=== PATIENT | female | born 1970 | race Caucasian/White ===

== ENCOUNTER 2020-04-13 04:52 | Emergency (ER) | payer OTHER ==
[~2020-04-13] VITALS: Ht 162.6 cm; Wt 86.2 kg
[2020-04-13] MEDS ORDERED: MORPHINE SULFATE 2 MG/ML SYR 1ML IV STA (05:09)
[2020-04-13] MEDS ORDERED: PANTOPRAZOLE 40 MG 10ML VIAL IV STA (05:09)
[2020-04-13] MEDS ORDERED: ONDANSETRON HCL INJ 2MG/ML 2ML 2 MG/ML VIAL IV STA (05:09)
[2020-04-13] MEDS ORDERED: SODIUM CHLORIDE 0.9% 1000ML 1,000 ML IV ONE (05:15)
[2020-04-13] MEDS ORDERED: DICYCLOMINE HCL 20 MG/2 ML VIAL IM ONE (05:15)
--- NOTE | 2020-04-13 05:16 | Emergency Department Note ---
History of Present Illnes History of Present Illness Chief Complaint: Abdominal Complaints History of Present Illness This is a 50 year old female with history of gastric sleeve presents with right upper quadrant pain since 9 PM last night after eating carditis. Patient describes pain as in her upper right abdomen radiating to her back. She reports nausea. . Historian: Patient Arrival Mode: Car Onset (how long ago): hour(s) (8) Location: ruq Quality: pain Radiation: Reports back Severity: moderate Onset quality: sudden Duration (how long): hour(s) (8) Timing of current episode: constant Progression: worsening Chronicity: new Context: Denies recent illness, Denies recent surgery Relieving factors: none Exacerbating factors: none Associated symptoms: Reports denies other symptoms (NATHAN SWEET MD) Past Medical/Family History Physician Review I have reviewed the patient's past medical and family history. Any updates have been documented here. (NATHAN SWEET MD) Past Medical History Recent Fever: No Clinical Suspicion of Infectio: No New/Unexplained Change in Ment: No Past Medical History: None Past Surgical History: Hysterectomy, Bariatric Surgery Other Surgery: GASTRIC SLEEVE (NATHAN SWEET MD) Social History Smoking Cessation: Never Smoker Alcohol Use: None Any Illegal Drug Use: No (NATHAN SWEET MD) Other Last Tetanus: UNK (NATHAN SWEET MD) Review of Systems Review of Systems Constitutional: Reports no symptoms EENTM: Reports no symptoms Cardiovascular: Reports no symptoms Respiratory: Reports no symptoms Genitourinary: Reports no symptoms Musculoskeletal: Reports no symptoms Integumentary: Reports no symptoms Neurological: Reports no symptoms Psychological: Reports no symptoms Endocrine: Reports no symptoms Hematological/Lymphatic: Reports no symptoms (NATHAN SWEET MD) Physical Exam Related Data Allergies: Coded Allergies: codeine (Verified Allergy, Mild, 07/22/08) Triage Vital Signs Vital Signs Date Time Temp Pulse Resp B/P (MAP) Pulse Ox O2 Delivery O2 Flow Rate FiO2 04/13/20 04:56 97.0 57 20 147/87 100 Vital signs reviewed: Yes (NATHAN SWEET MD) Physical Exam CONSTITUTIONAL Constitutional: Present well-developed, Present well-nourished HENT HENT: Present normocephalic, Present atraumatic, Present oropharynx clear/moist, Present nose normal HENT L/R: Present left ext ear normal, Present right ext ear normal EYES Eyes: Reports PERRL, Reports conjunctivae normal NECK Neck: Present ROM normal PULMONARY Pulmonary: Present effort normal, Present breath sounds normal CARDIOVASCULAR Cardiovascular: Present regular rhythm, Present heart sounds normal, Present capillary refill normal, Present bradycardia (50) GASTROINTESTINAL Abdominal: Present soft, Present bowel sounds normal, Present tender (moderate ruq, and epigastric) GENITOURINARY Genitourinary: Present exam deferred SKIN Skin: Present warm, Present dry MUSCULOSKELETAL Musculoskeletal: Present ROM normal NEUROLOGICAL Neurological: Present alert, Present oriented x 3, Present no gross motor or sensory deficits PSYCHOLOGICAL Psychological: Present mood/affect normal, Present judgement normal (NATHAN SWEET MD) Results Laboratory Lab results reviewed: Yes (NATHAN SWEET MD) Procedures 12 Lead ECG Interpretation ECG Interpretation : ECG: ECG 1 Industrial Editor: Interpreted by ED physician Date: Apr 13, 2020 Time: 05:03 Rhythm: sinus bradycardia Rate: bradycardia BPM: 49 QRS axis: normal ST segments normal: Yes T waves normal: Yes Other findings: no other findings Clinical Impression: abnormal ECG (NATHAN SWEET MD) Assessment & Plan Medical Decision Making [facility] Patient with right upper quadrant pain radiating to back. CBC, CMP, amylase, lipase, cardiac enzymes, EKG, Runner quadrant ultrasound ordered to eval for electrolyte abnormality, elevated LFTs, pancreatitis, gallstones, cholecystitis, myocardial infarction Morphine 4 mg IV ordered. Zofran 4 mg IV ordered. Protonix 40 mg IV ordered. Bentyl 20 mg IM ordered. 1 L normal saline IV ordered. (NATHAN SWEET MD) [facility] 50-year-old female arrived to the ED with right upper quadrant abdominal pain, sign out obtained from Dr. Sweet to follow up ultrasound and dispo. (SHOSHANA GRANADOS, ) Reassessment Reassessment time: 07:48 Reassessment Patient reevaluated bedside, pain controlled. Patient informed of ultrasound findings of cholelithiasis/gallstones. Patient expressed understanding. Patient with no WBC count elevation, afebrile, tolerating oral intake. Patient given outpatient general surgery follow-up for further management of her gallstones. Patient informed of diet control and to avoid fatty/greasy/spicy meals in the interim. (SHOSHANA GRANADOS DO) Assessment & Plan Final Impression: (1) Abdominal pain (NATHAN SWEET MD) Final Impression: (1) Abdominal pain (2) Cholelithiasis (SHOSHANA GRANADOS DO) Depart Disposition: HOME, SELF-CARE Last Vital Signs Date Time Temp Pulse Resp B/P (MAP) Pulse Ox O2 Delivery O2 Flow Rate FiO2 04/13/20 04:56 97.0 57 20 147/87 100 (NATHAN SWEET MD) Home Meds Active Scripts Ondansetron Hcl* (ZOFRAN*) 4 Mg Tablet, 4 MG SL Q6H PRN for NAUSEA, #14 MG 0 Refills Prov:SHOSHANA GRANADOS DO 04/13/20 Tramadol Hcl (ULTRAM) 50 Mg Tablet, 50 MG PO Q6HR PRN for ABDOMINAL PAIN, #12 TAB Prov:SHOSHANA GRANADOS DO 04/13/20 NATHAN SWEET MD Apr 13, 2020 05:16 SHOSHANA GRANADOS DO Apr 13, 2020 07:36
[2020-04-13 06:00] LABS: BASOPHILS # (AUTO) 0.1 (0.0-0.1); BASOPHILS % 0.7 % (0.0-1.0); EOSINOPHILS # (AUTO) 0.2 (0.0-0.4); EOSINOPHILS % 2.5 % (0.0-6.0); HEMATOCRIT 39.7 % (34.2-44.1); HEMOGLOBIN 12.9 g/dL (12.0-16.0); LYMPHOCYTES # (AUTO) 1.9 (1.0-3.2); LYMPHOCYTES % 21.9 % (18.0-39.1); MEAN CORPUSCULAR HEMOGLOBIN 30.3 pg (28-32); MEAN CORPUSCULAR HGB CONC 32.5 g/dL (31-35); MEAN CORPUSCULAR VOLUME 93.2 fL (81-99); MONOCYTES # (AUTO) 0.4 (0.2-0.8); NEUTROPHILS # (AUTO) 5.9 (2.1-6.9); NEUTROPHILS % 69.5 % (38.7-80.0); PLATELET COUNT 301 x10e3/uL (140-360); RED BLOOD COUNT 4.26 x10e6/uL (3.6-5.1); RED CELL DISTRIBUTION WIDTH 12.6 % (11.7-14.4)
[2020-04-13 06:13] LABS: CLARITY,URINE CLEAR (CLEAR); COLOR,URINE YELLOW (YELLOW)
[2020-04-13 06:14] LABS: BILIRUBIN,URINE NEGATIVE (NEGATIVE); KETONES,URINE NEGATIVE (NEGATIVE); LEUKOCYTE ESTERASE ,URINE NEGATIVE (NEGATIVE); NITRITE,URINE NEGATIVE (NEGATIVE); PROTEIN,URINE DIPSTICK NEGATIVE (NEGATIVE); URINE UROBILINOGEN 0.2 mg/dL (0.2 - 1)
[2020-04-13 06:24] LABS: BACTERIA,URINE RARE /HPF; EPITHELIAL CELLS,URINE FEW /LPF; RBC,URINE 0-5 /HPF (0-5); WBC,URINE (MAN) 0-5 /HPF (0-5)
[2020-04-13 06:28] LABS: CREATINE KINASE MB 0.8 ng/mL (0-5.0)
[2020-04-13 06:36] LABS: ALBUMIN 3.9 g/dL (3.5-5.0); ALBUMIN/GLOBULIN RATIO 1.1 (0.8-2.0); ANION GAP 15.1 mmol/L (8-16); CALCIUM 9.1 mg/dL (8.4-10.2); CREATININE, SERUM 1.05 mg/dL (0.57-1.11); POTASSIUM 4.1 mmol/L (3.5-5.1)
[2020-04-13] MEDS ORDERED: HYDROMORPHONE 1MG/1ML INJ IV STA (06:42)
[2020-04-13 06:59] LABS: AMYLASE 62 U/L (25-125); LIPASE 20 U/L (8-78)
--- NOTE | 2020-04-13 07:00 | Diagnostic Imaging Report ---
EXAM: Right Upper Quadrant Ultrasound INDICATION: ^ruq pain ^[id number] ^[id number] ^Y COMPARISON: None. TECHNIQUE: Transverse and longitudinal images of the right upper abdomen were obtained. FINDINGS: Liver: Size: 14.9 cm in the right midclavicular line, normal Appearance: Increased echogenicity, smooth contour Mass: No focal masses Gallbladder: Stones/Sludge: 1.9 cm shadowing stone in gallbladder neck. Small amount of sludge. Wall: 0.2 cm Appearance: No pericholecystic fluid or hydrops. Sonographic Ramachandran's Sign: Negative Bile Ducts: Intrahepatic Ducts: No dilatation Extrahepatic Ducts: Common bile duct measures 0.8 cm, mildly dilated Pancreas: Visualized pancreas is unremarkable. Right Kidney: Size: 8.4 cm Echogenicity: Normal Parenchymal thickness: Normal Collecting system: No hydronephrosis Stones: None Cyst/Mass: None Vessels: Aorta: Visualized portions are normal Inferior Vena Cava: Visualized portions are normal Main Portal Vein: 1.4 cm, mildly distended with hepatopetal flow. Free Fluid: No ascites or pleural effusion IMPRESSION: Hepatic steatosis. Cholelithiasis without evidence of cholecystitis. Mildly dilated common bile duct. If there is clinical concern for biliary obstruction, MRCP can be obtained for further evaluation. Signed by: Dr. Jefry Kapoor MD on 04/13/2020 6:56 AM
[2020-04-13] MEDS ORDERED: ZOFRAN4 MG SL (07:18)
[2020-04-13] MEDS ORDERED: ULTRAM50 MG PO (07:18)
[2020-04-13 08:12] VITALS: BP 120/76
== END 2020-04-13 08:25 | disposition home or self-care (01) ==
LOC: ER 04:52
DX: R10.11 Right upper quadrant pain (principal); R11.0 Nausea; K80.20 Calculus of gallbladder without cholecystitis without obstruction; Z98.84 Bariatric surgery status
CPT/HCPCS: 36415; 76705; 80053; 81001; 82150; 82550; 82553; 83690; 84484; 85025; 93005; 99284; C9113; J0500; J1170; J2270; J2405; J7030

== ENCOUNTER 2020-04-13 16:36 | Emergency (ER) | payer OTHER ==
[~2020-04-13] VITALS: Ht 162.6 cm; Wt 86.2 kg
[~2020-04-13 16:36] MED LIST: ULTRAM50 MG PO; ZOFRAN4 MG SL
[2020-04-13] MEDS ORDERED: SODIUM CHLORIDE 0.9% 1000ML 1,000 ML IV STA (16:41)
[2020-04-13] MEDS ORDERED: CEFTRIAXONE SOD 1 GM/NS 50 ML 50 ML IV ONE (16:45)
--- NOTE | 2020-04-13 17:19 | Emergency Department Note ---
History of Present Illnes History of Present Illness Chief Complaint: Abdominal Complaints History of Present Illness This is a 50 year old female arrived to the ED with continued right upper quadrant abdominal pain, patient seen at general surgeon as an outpatient prior to arrival states pain is unrelenting. . Historian: Patient Arrival Mode: Car Radiation: Reports non-radiation Onset quality: gradual Duration (how long): hour(s) Timing of current episode: constant Chronicity: recurrent Past Medical/Family History Physician Review I have reviewed the patient's past medical and family history. Any updates have been documented here. Past Medical History Recent Fever: No Clinical Suspicion of Infectio: No New/Unexplained Change in Ment: No Past Medical History: None Past Surgical History: Hysterectomy, Bariatric Surgery Other Surgery: GASTRIC SLEEVE Other Last Tetanus: UNK Review of Systems Review of Systems Constitutional: Reports no symptoms EENTM: Reports no symptoms Cardiovascular: Reports no symptoms Respiratory: Reports no symptoms Gastrointestinal: Reports as per HPI, Reports abdominal pain Genitourinary: Reports no symptoms Musculoskeletal: Reports no symptoms Integumentary: Reports no symptoms Neurological: Reports no symptoms Psychological: Reports no symptoms Endocrine: Reports no symptoms Hematological/Lymphatic: Reports no symptoms Physical Exam Related Data Allergies: Coded Allergies: codeine (Verified Allergy, Mild, 07/22/08) Triage Vital Signs Vital Signs Date Time Temp Pulse Resp B/P (MAP) Pulse Ox O2 Delivery O2 Flow Rate FiO2 04/13/20 16:53 97.0 60 18 127/80 100 Vital signs reviewed: Yes Physical Exam CONSTITUTIONAL Constitutional: Present well-developed, Present well-nourished HENT HENT: Present normocephalic, Present atraumatic, Present oropharynx clear/moist, Present nose normal HENT L/R: Present left ext ear normal, Present right ext ear normal EYES Eyes: Reports PERRL, Reports conjunctivae normal NECK Neck: Present ROM normal PULMONARY Pulmonary: Present effort normal, Present breath sounds normal CARDIOVASCULAR Cardiovascular: Present regular rhythm, Present heart sounds normal, Present capillary refill normal, Present normal rate GASTROINTESTINAL Abdominal: Present soft, Present nontender, Present bowel sounds normal; Absent tender, Absent guarding, Absent rebound GENITOURINARY Genitourinary: Present exam deferred SKIN Skin: Present warm, Present dry MUSCULOSKELETAL Musculoskeletal: Present ROM normal NEUROLOGICAL Neurological: Present alert, Present oriented x 3, Present no gross motor or sensory deficits PSYCHOLOGICAL Psychological: Present mood/affect normal, Present judgement normal Results Laboratory Lab results reviewed: Yes Imaging Imaging results reviewed: Yes Assessment & Plan Medical Decision Making MDM 50-year-old female arrived to the ED with continued complaints of right upper quadrant abdominal pain. Patient states she is not able tolerate oral intake. Patient's labwork and imaging reviewed from this morning. Patient evaluated by Dr. Abad from general surgery prior to arrival, recommended cholecystectomy. Patient transferred to [facility] for further workup and management. Assessment & Plan Final Impression: (1) Cholelithiasis (2) Abdominal pain Depart Disposition: TRANS TO OTHER [facility] Last Vital Signs Date Time Temp Pulse Resp B/P (MAP) Pulse Ox O2 Delivery O2 Flow Rate FiO2 04/13/20 16:53 97.0 60 18 127/80 100 Home Meds Active Scripts Ondansetron Hcl* (ZOFRAN*) 4 Mg Tablet, 4 MG SL Q6H PRN for NAUSEA, #14 MG 0 Refills Prov:SHOSHANA GRANADOS DO 04/13/20 Tramadol Hcl (ULTRAM) 50 Mg Tablet, 50 MG PO Q6HR PRN for ABDOMINAL PAIN, #12 TAB Prov:SHOSHANA GRANADOS DO 04/13/20 Medications in the ED Ceftriaxone Sodium 50 ml @ 100 mls/hr ONCE ONCE IV ; Start 04/13/20 at 16:45; Stop 04/13/20 at 17:14 Sodium Chloride 1,000 ml @ 0 mls/hr Q0M STAT IV ; Start 04/13/20 at 16:41; Stop 04/13/20 at 16:43; Status DC SHOSHANA GRANADOS DO Apr 13, 2020 17:19
--- NOTE | 2020-04-13 19:59 | NUR ---
[facility] CALLED FOR UPDATE, [facility] WILL BE IN ROUTE IN LESS THAN 1 HOUR.
[2020-04-13 21:25] VITALS: BP 132/82
== END 2020-04-13 21:27 | disposition other institution (70) ==
LOC: ER 16:36
DX: R10.11 Right upper quadrant pain (principal); K80.20 Calculus of gallbladder without cholecystitis without obstruction; Z98.84 Bariatric surgery status
CPT/HCPCS: 99283; J0696; J7030